=== PATIENT | female | born 1945 | race Caucasian/White ===

== ENCOUNTER 2017-07-29 19:21 | Emergency (ER) | payer SELFPAY ==
[~2017-07-29] VITALS: Ht 154.9 cm; Wt 83.5 kg
[2017-07-29 19:24] VITALS: BP_SYST 204
[2017-07-29] MEDS ORDERED: methylPREDNISolone SOD SUCC/PF 62.5 MG/ML VIAL IM ONE (20:15)
[2017-07-29 21:00] VITALS: BP_SYST 191
== END 2017-07-29 21:00 | disposition home or self-care (01) ==
LOC: SED 19:21
DX: H57.8 Other specified disorders of eye and adnexa (principal); G51.0 Bell's palsy; I10 Essential (primary) hypertension
CPT/HCPCS: 96372; 99283; J2930